=== PATIENT | female | born 1935 | race Caucasian/White ===

== ENCOUNTER → 2019-09-19 | Outpatient (CLI) | payer MEDICARE, OTHER ==
[~2019-09-19] MED LIST: ASPI81TA50 PO; ATEN50TA41 PO; CALC1CAP8 PO; CEFU500T PO; METR500T PO; MULT-334 PO; OMEP20CA20 PF; OMNIPAQUE 350 MG/ML, 100ML BOTTLE ONE; SALM1CAP2 PO
== END | disposition home or self-care (01) ==
LOC: CFH 08:59
PROVIDERS: ATTEND Family Medicine
DX: K57.30 Diverticulosis of large intestine without perforation or abscess without bleeding (principal); N28.1 Cyst of kidney, acquired; K76.89 Other specified diseases of liver; M51.36 Other intervertebral disc degeneration, lumbar region; M41.86 Other forms of scoliosis, lumbar region
CPT/HCPCS: 74177; Q9967

== ENCOUNTER 2020-09-25 10:30 | Emergency (ER) | payer MEDICARE, OTHER ==
[~2020-09-25] VITALS: Ht 170.2 cm; Wt 57.0 kg
[~2020-09-25 10:30] MED LIST changes: -OMNIPAQUE 350 MG/ML, 100ML BOTTLE ONE
--- NOTE | 2020-09-25 11:20 | NUR ---
Pt reports elevated BP at home today. Takes Atenolol. Reports intermittent chest "discomfort" 04/23; hx A-Fib. Denies N/V, dizziness. 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 Takes ASA 81mg Q HS. No pain medication taken today. Resp even & unlabored, speech clear, skin WNL.
[2020-09-25] MEDS ORDERED: SODIUM CHLORIDE FLUSH 10ML SYR IVF ONE (11:30)
[2020-09-25] MEDS ORDERED: NITROGLYCERIN SINGLE TAB 0.4 MG SL PRN (11:30)
[2020-09-25] MEDS ORDERED: ASPIRIN 81 MG TABLET CHEW PO ONE (11:30)
[2020-09-25] MEDS ORDERED: OMEP20TA62 PO (11:33)
[2020-09-25] MEDS ORDERED: CELE-47 PO (11:33)
[2020-09-25] MEDS ORDERED: LEVO25TA4 PO (11:33)
[2020-09-25 11:49] LABS: BASOPHILS % (AUTO) 1 % (0-1); EOSINOPHILS % (AUTO) 0 % (1-7); LYMPHOCYTES % (AUTO) 19 % (22-44); MEAN CORPUSCULAR HEMOGLOBIN 31.3 pg (27.0-34.8); MEAN CORPUSCULAR HGB CONC 33.6 g/dL (32.4-35.8); MEAN PLATELET VOLUME 7.1 fL (7.4-10.4); MONOCYTES % (AUTO) 8 % (2-9); NEUTROPHILS % (AUTO) 72 % (42-75); PLATELET COUNT 222 x10^3/uL (130-400); RED CELL DISTRIBUTION WIDTH 12.7 % (9.6-15.2)
[2020-09-25 11:57] LABS: ALBUMIN 3.7 g/dL (3.4-5.0); ANION GAP 6 mmol/L (5-15); CALCIUM 9.6 mg/dL (8.5-10.1); CHLORIDE 108 mmol/L (98-107)
[2020-09-25 12:02] LABS: ALANINE AMINOTRANSFERASE 19 U/L (12-78); ALKALINE PHOSPHATASE 63 U/L (45-117); BILIRUBIN,TOTAL 0.6 mg/dL (0.2-1.0); CREATININE 0.78 mg/dL (0.55-1.02); T4 (THYROXINE) 11.8 mcg/dL (4.8-13.9); TOTAL PROTEIN 7.4 g/dL (6.4-8.2); TROPONIN I < 0.015 ng/mL (0.000-0.045)
--- NOTE | 2020-09-25 12:06 | NUR ---
PT DENIES CP AT THIS TIME, STATES CHEST TIGHTNESS INTERMITTENTLY. BP 137/77, NO CP/TIGHTNESS, OR SOB AT THIS TIME. HOLD ON NTG FOR NOW. CONTINUE TO AWAIT LAB RESULTS. CALL LIGHT WITHIN REACH. PT ON ALL ROOM MONITORING.
[2020-09-25] MEDS ORDERED: ASPIRIN 81 MG TABLET CHEW ONE (12:28)
--- NOTE | 2020-09-25 13:16 | NUR ---
ALL RESULTS BACK, PT FOR RECHECK.
[2020-09-25 14:23] VITALS: BP 122/68
== END 2020-09-25 14:25 | disposition home or self-care (01) ==
LOC: ED 14:16
DX: R07.89 Other chest pain (principal); I10 Essential (primary) hypertension; Z90.49 Acquired absence of other specified parts of digestive tract; Z90.710 Acquired absence of both cervix and uterus; Z87.891 Personal history of nicotine dependence
CPT/HCPCS: 36415; 71045; 80053; 84436; 84443; 84484; 85025; 93005; 99285